=== PATIENT | female | born 1935 | race Caucasian/White ===

== ENCOUNTER 2016-10-04 11:46 | Emergency (ER) | payer MEDICARE, OTHER ==
--- NOTE | ~2016-10-04 | CR117 ---
[facility] A Service [facility] RADIOLOGY TEXT RESULTS PATIENT: PRATIK ARAUJO LOCATION: SED : 34 UNIT #: [id number] AGE: [address]: SHAGGY GLOVER SEX: F ORDER DR: [id number] [place] [id number] E MR#: [id number] Acc #: [id number] NAME: PRATIK ARAUJO. : 1935 SEX: F STUDY DATE/TIME: 10/04/2016 UNIT: SED ROOM: STUDY DESCRIPTION: CR Finger 2 View Thumb Rt Attending Physician: Shaggy Glover Aprn Ordering Physician: Shaggy Glover Aprn Primary Care Physician: No Primary Care Physician MEDICAL IMAGING REPORT This report is preliminary unless electronic signature is present. EXAM Right thumb 3 views 10/04/2016 1230 hours. HISTORY 81-year-old woman with 3-day history of redness and swelling in the thumb. No reported injury. COMPARISON Right hand film 10/16/2014. FINDINGS AP, lateral and oblique views demonstrate osteopenia with no fracture. There is mild spurring at the first carpometacarpal joint. There is no foreign body or soft tissue gas. IMPRESSION Osteopenia with mild osteoarthritis similar to 10/16/2014. No fracture or lytic change. Dictated by... Loni Martin M.D. THIS IS AN ELECTRONICALLY VERIFIED REPORT Loni Martin M.D. at 10/04/2016 5:41 PM ALEKSEY/abarn TD: 10/04/2016 15:40 JOB #: [id number] MEDICAL IMAGING REPORT [facility] A Service [facility] RADIOLOGY TEXT RESULTS PATIENT: PRATIK ARAUJO LOCATION: SED : 34 UNIT #: [id number] AGE: [address]: SHAGGY GLOVER SEX: F ORDER DR: Page 1 of 1
[~2016-10-04 11:46] MED LIST: ACIPHEX20 MG PO; ALBUTEROL 0.5ML INH; ALDACTONE PO; AMBIEN PO; AMIODARONE HCL100 MG PO; AMIODARONE PO; ASPIRIN81 M2 PO; AUGMENTIN875 MG PO; BUMETANIDE1 MG PO; CARDIZEM CD180 M2 PO; CARDIZEM PO; CEFTIN PO; COLACE PO; COUMADIN PO; COUMADIN2.5 MG PO; DILTIAZEM 24HR180 M1 PO; DILTIAZEM 24HR180 MG PO; DULCOLAX5 MG PO; ENOXAPARIN60 MG/0.1 SQ; FLEXERIL PO; FUROSEMIDE40 MG PO; K-DUR20 ME1 PO; KCL PO; LANOXIN125 MCG PO; LASIX PO; LASIX20 MG PO; LEXAPRO PO; LIPITOR20 MG PO; LISINOPRIL2.5 MG PO; METOPROLOL ER PO; MIRALAX17 GM PO; MYSOLINE50 MG PO; NITROSTAT0.4 MG SL; PACERONE100 MG PO; PERCOCET 5-3251 TAB PO; PRAVASTATIN SOD80 MG PO; PRIMIDONE50 MG PO; PROAIR HFA8.5 GM IH; RISPERIDONE PO; SYMBICORT INH; SYNTHROID25 MCG PO; TOPROL XL 50 MG50 MG PO; TOPROL XL PO; TOPROL XL50 MG PO; TUDORZA PRESS400 MCG IH; TYLENOL325 M1 PO; VITAMIN B-121000 MCG PO; WALGREENS PHARMACY; ZITHROMAX PO; ZOCOR PO
== END 2016-10-04 14:00 | disposition home or self-care (01) ==
LOC: SED 11:46
DX: L03.011 Cellulitis of right finger (principal); I10 Essential (primary) hypertension; E78.5 Hyperlipidemia, unspecified; J44.9 Chronic obstructive pulmonary disease, unspecified; Z90.710 Acquired absence of both cervix and uterus; F17.210 Nicotine dependence, cigarettes, uncomplicated; Z90.49 Acquired absence of other specified parts of digestive tract; Z88.2 Allergy status to sulfonamides
CPT/HCPCS: 73140; 99283

== ENCOUNTER 2016-12-08 15:59 | Emergency (ER) | payer MEDICARE, OTHER ==
[~2016-12-08] VITALS: Ht 152.4 cm; Wt 47.6 kg
--- NOTE | ~2016-12-08 | CT71 ---
[facility] A Service of [facility] RADIOLOGY TEXT RESULTS PATIENT: PRATIK ARAUJO LOCATION: SED : 34 UNIT #: [id number] AGE: [address]: PEARL HAIR SEX: F ORDER DR: [id number] [place] [id number] E MR#: [id number] Acc #: [id number] NAME: PRATIK ARAUJO : 1935 SEX: F STUDY DATE/TIME: 12/08/2016 18:25 UNIT: SED ROOM: STUDY DESCRIPTION: CT Head Wo Contrast Attending Physician: Pearl Hair A.P.R.N. Ordering Physician: Pearl Hair A.P.R.N. Primary Care Physician: No Primary Care Physician MEDICAL IMAGING REPORT This report is preliminary unless electronic signature is present. EXAM CT brain without contrast. HISTORY Right ear pain for 2 months. No injury. TECHNIQUE This CT exam was performed with one or more of the following radiation dose reduction techniques: automatic exposure control, adjustment of mA and/or kV according to patient size, and iterative reconstruction. FINDINGS CT brain without contrast demonstrates moderate chronic ischemic changes in the deep white matter bilaterally. Moderate generalized cerebral and cerebellar cortical atrophy. No intracranial hemorrhage, mass, or edema. No midline shift or focal atrophy or extraaxial fluid collection. IMPRESSION No acute findings. Generalized cerebral and cerebellar cortical atrophy and moderate chronic ischemic changes in the deep white matter bilaterally. Dictated by... Clarke Lemus M.D. THIS IS AN ELECTRONICALLY VERIFIED REPORT Clarke Lemus M.D. at 12/09/2016 10:09 PM DFL/ijeoma TD: 12/09/2016 18:15 JOB #: [id number] [facility] A Service of [facility] RADIOLOGY TEXT RESULTS PATIENT: PRATIK ARAUJO LOCATION: SED : 34 UNIT #: [id number] AGE: [address]: PEARL HAIR SEX: F ORDER DR: MEDICAL IMAGING REPORT Page 1 of 1
== END 2016-12-08 19:29 | disposition home or self-care (01) ==
LOC: SED 15:59
DX: H66.91 Otitis media, unspecified, right ear (principal); H60.91 Unspecified otitis externa, right ear; I48.91 Unspecified atrial fibrillation; I10 Essential (primary) hypertension; F17.200 Nicotine dependence, unspecified, uncomplicated; Z88.2 Allergy status to sulfonamides; Z79.82 Long term (current) use of aspirin; Z79.899 Other long term (current) drug therapy
CPT/HCPCS: 70450; 99283